=== PATIENT | female | born 1945 | race Caucasian/White ===

== ENCOUNTER 2016-03-03 13:44 | Emergency (ER) | payer MEDICARE, OTHER ==
[2016-03-03 14:13] VITALS: BP 99/55
--- NOTE | 2016-03-03 15:17 | RAD ---
INDICATION: 3 weeks increasing shortness of breath. Central chest pain with inspiration. Cough and fever. COMPARISON: September 13, 2004 TECHNIQUE: Dual energy PA and routine lateral views of the chest were obtained. REPORT: Small bilateral dependent pleural effusions. Minimal prominence of the interstitial markings with thickened peripheral interlobular septa in the lower lung zones. Negative for pneumothorax. Negative for cardiomegaly. Unremarkable central pulmonary vasculature. Mildly tortuous descending thoracic aorta. LEFT C7 cervical rib noted. IMPRESSION: 1. No radiographic evidence for pneumonia. 2. Small bilateral pleural effusions and suggestion of potential mild interstitial edema.
--- NOTE | 2016-03-03 16:27 | UC ---
Ignacio Howe SooYoung, scribed for BrendaMilagros Frazier, DO on 03/03/16 at 1450 . Throat Pain/Nasal Carlito HPI - HPI Summary HPI Summary: A 70 y/o F presents to [facility] with c/o of chills and fever onset this AM. Pt notes having had an ongoing cold for approx. 3 weeks. Yesterday, she noticed UTI sx including frequency, dysuria, cloudy urine, abd discomfort. She spoke to Dr. Gonzalez's office and they gave her macrobid. Dr. Gonzalez is treating her for recurrent UTIs. She took the abx (2x) yesterday, and this AM after waking and peeing, she had chills and fever. MaxT of 100.8. Associated sx: CP, dyspnea( worse with exertion), sore throat, mildly productive cough, generalized weakness. Denies back pain, n/v, hematuria, dizziness, confusion. She called Dr. Gonzalez again this AM, who told her to stop taking the abx, and referred her to [facility]. CP is described as "tightness." Today and now at [facility], pt does not feel any urinary sx. Past SHx: urethra dilation. - History of Current Complaint Chief Complaint: UCGeneralIllness Stated Complaint: BAD COLD-FEVER/CHILLS/WEAK Hx Obtained From: Patient, Family/Sieve Repairer - ?: No Onset/Duration: Lasting Hours - this AM, Still Present Severity: Moderate Pain Intensity: 4 Pain Scale Used: 0-10 Numeric Cough: Sputum Appears - mild, green-dez Associated Signs & Symptoms: Positive: Sinus Discomfort, Nasal Discharge, Fever. Negative: Dysphagia, Drooling, Vomiting, Rash - Allergies/Home Medications Allergies/Adverse Reactions: Allergies Allergy/AdvReac Type Severity Reaction Status Date / Time No Known Allergies Allergy Verified 03/03/16 14:00 Home Medications: Home Medications Ntcqupwgaex-Yarpabjaitd-Tcv C- [Glucosamine Chondroitin] 03/03/16 [History] Ibuprofen TAB* [Advil TAB*] 4 tab PO PRN 03/03/16 [History] Nitrofurantoin Macrocrystals* [Macrodantin*] 1 cap PO 03/03/16 [History Confirmed 03/03/16] Orphenadrine Citrate IV* [Norflex IV*] 10 mg PO PRN 03/03/16 [History] PMH/Surg Hx/FS Hx/Imm Hx Previously Healthy: No Endocrine History Of: Denies: Diabetes, Thyroid Disease Cardiovascular History Of: Denies: Cardiac Disorders, Hypertension, Pacemaker/ICD Respiratory History Of: Denies: COPD, Asthma GI/ History Of: Denies: Ulcer, Renal Disease - Surgical History Surgical History: Yes Surgery Procedure, Year, and Place: TONSILECTOMY. LASIX -EYES-1999. CATARACT - Family History Known Family History: Positive: Unknown - father from suicide when pt was young, poss bipolar, Hypertension - mother Negative: Cardiac Disease, Diabetes - Social History Occupation: Retired Lives: With Family Alcohol Use: Occasionally Alcohol Amount: 1 glass of wine per week Substance Use Type: None Smoking Status (MU): Never Smoked Tobacco - Immunization History Most Recent Influenza Vaccination: 12/12 Review of Systems Constitutional: Fever - maxT - 100.8, Chills Skin: Negative Eyes: Negative ENT: Sore Throat, Nasal Discharge Respiratory: Shortness Of Breath, Cough Cardiovascular: Chest Pain - mild plueritic Gastrointestinal: Negative Genitourinary: Negative Motor: Negative Neurovascular: Negative Musculoskeletal: Negative Neurological: Weakness - generalized Psychological: Negative All Other Systems Reviewed And Are Negative: Yes Physical Exam Triage Information Reviewed: Yes Appearance: Well-Appearing, No Pain Distress, Well-Nourished Vital Signs: Initial Vital Signs Temp 99.2 F 03/03/16 14:03 Pulse 113 03/03/16 14:03 Resp 18 03/03/16 14:03 BP 99/55 03/03/16 14:03 Pulse Ox 93 03/03/16 14:03 Vital Signs Reviewed: Yes Eyes: Positive: Conjunctiva Clear. Negative: Discharge ENT: Positive: Hearing grossly normal, Pharynx normal, TMs normal, Other: - BILATERAL MAXILLARY SINUS TENDERNESS. Negative: Tonsillar swelling, Tonsillar exudate, Trismus, Muffled/hoarse voice Neck exam: Normal Neck: Positive: Supple, Nontender Respiratory: Positive: Chest non-tender, Wheezing - RARE WHEEZES, Expiration - PROLONGED EXPIRATION. Negative: No respiratory distress, Crackles Cardiovascular: Positive: RRR, No Murmur Abdomen Description: Positive: Nontender, Soft. Negative: CVA Tenderness (R), CVA Tenderness (L), Distended, Guarding Bowel Sounds: Positive: Present Musculoskeletal Exam: Normal Musculoskeletal: Positive: Strength Intact, No Edema Neurological: Positive: Alert, Muscle Tone Normal Psychological Exam: Normal Psychological: Positive: Age Appropriate Behavior Skin Exam: Normal, Other - warm, dry, nml color Skin: Positive: Other Diagnostics - Radiology CXR Xray Interpretation: Positive (See Comments) - IMPRESSION: 1. No radiographic evidence of PNA. 2. Small bilat plueral effusions and suggestion of potential mild interstitial edema. Radiology Interpretation Completed By: Radiologist - EKG Cardiac Rate: NL - 97bpm Cardiac Rhythm: Sinus: Normal - no ST changes Throat Pain/Nasal Course/Dx - Differential Dx/Diagnosis Differential Diagnosis/HQI/PQRI: Influenza, Sinusitis, URI, Other - PNA, UTI, SIRS, CHF Provider Diagnoses: DYSPNEA - Physician Notification/Consults Discussed Patient Care With: Dr. Vail Time Discussed With Above Provider: 15:48 Instructed by Provider To: MD Will See In ED Discharge - Discharge Plan Condition: Stable Disposition: HOME Discharge Disposition Comment: [facility], by ambulance Prescriptions: Albuterol HFA INHALER* [Ventolin HFA Inhaler*] 2 puff INH Q4H PRN #1 mdi PRN Reason: Sob/Wheezing Levofloxacin TAB* [Levaquin TAB*] 500 mg PO DAILY #7 tab guaiFENesin ER TAB [Mucinex*] 600 mg PO BID PRN #1 box PRN Reason: Cough Referrals: Wilder Crane MD [Primary Care Provider] - 2 Days (Follow up in 2 days for re- evaluation. This follow up visit is important, we want to know that you are improving. If you can not get in with your PCP, return here for re-evaluation. ) The documentation as recorded by the Ignacio ross SooYoung accurately reflects the service I personally performed and the decisions made by me, Milagros Gutierrez DO.
== END 2016-03-03 16:40 | disposition short-term general hospital (02) ==
LOC: UCEAST 13:44
DX: R06.00 Dyspnea, unspecified (principal); J02.9 Acute pharyngitis, unspecified; R05 Cough; M62.81 Muscle weakness (generalized); Z87.440 Personal history of urinary (tract) infections
CPT/HCPCS: 71020; 93005; 99213; G0463

== ENCOUNTER 2016-03-03 17:04 | Emergency (ER) | payer MEDICARE, OTHER ==
[2016-03-03 17:22] VITALS: BP 114/68
[2016-03-03] MEDS ORDERED: NS 0.9% 1000 ML* 1,000 ML IV ONE (17:52)
[2016-03-03 19:05] LABS: Hematocrit 43 % (35-47); Hemoglobin 14.2 g/dl (12.0-16.0); Mean Corpuscular HGB Conc 33 g/dl (31-36); Mean Corpuscular Hemoglobin 30 pg (27-31); Mean Corpuscular Volume 91 fL (80-97); Mean Platelet Volume 8 um3 (7.4-10.4); Red Blood Count 4.68 10^6/ul (4.0-5.4); Red Cell Distribution Width 12 % (10.5-15)
[2016-03-03 19:06] LABS: Add Diff/Slide Review? Slide Review Added; Comments Flag Yes
[2016-03-03 19:16] LABS: Albumin 3.9 g/dL (3.2-5.2); Calcium 9.1 mg/dL (8.6-10.3); EGFR African American 65.9 (>60); EGFR Non-African American 51.2 (>60); Globulin 2.2 g/dL (2-4); Total Bilirubin 1.3 mg/dL (0.2-1.0); Total Protein 6.1 g/dL (6.4-8.9)
[2016-03-03 19:24] LABS: Potassium 4.6 mmol/L (3.5-5.0)
[2016-03-03 19:56] LABS: RBC Morphology Normal (Normal); Toxic Granulation 2+
[2016-03-03] MEDS ORDERED: Levofloxacin 750 MG IVPREMIX(* 750 MG/150 ML BAG IVPB ONE (20:00)
[2016-03-03] MEDS ORDERED: Acetaminophen TAB* 325 MG PO ONE (20:00)
--- NOTE | 2016-03-03 23:23 | ED ---
Ju Howe Rebecca, scribed for Tavares Vail MD on 03/03/16 at 1723 . Respiratory - HPI Summary HPI Summary: Pt is a 70 y/o F who presents to ED as a transfer from [facility] p/w respiratory complaints. Pt c/o dyspnea on exertion, sore throat, productive cough and generalized weakness intermittently for 3 weeks. Sx aggravated and alleviated by nothing. This morning, she suddenly developed chills and fever. Denies back pain, N/V, hematuria, dizziness and confusion. Yesterday, pt suddenly began experiencing UTI sx, so she called Dr. Gonzalez who prescribed Abx. After 2 doses, chills and fever presented and after discussing with Dr Gonzalez he advised that she cease Abx. Pt reports no urinary sx today. CXR from [facility] shows revealed small bilateral pleural effusions and suggestion of potential mild interstitial edema. - History of Current Complaint Stated Complaint: GENERAL ILLNESS Time Seen by Provider: 03/03/16 17:14 Hx Obtained From: Patient Onset/Duration: Gradual Onset, Lasting Weeks - 3 weeks Timing: Intermittent Episodes Lasting: Current Severity: None Pain Intensity: 0 Character: Cough (Productive), Dyspnea on Exertion Sputum Amount: Small Aggravating Factor(s): Nothing Alleviating Factor(s): Nothing Associated Signs and Symptoms: Fever, SOB - dyspnea on exertion, Chills - Allergy/Home Medications Allergies/Adverse Reactions: Allergies Allergy/AdvReac Type Severity Reaction Status Date / Time No Known Allergies Allergy Verified 03/03/16 14:00 PMH/Surg Hx/FS Hx/Imm Hx Endocrine/Hematology History: Denies: Hx Diabetes, Hx Thyroid Disease Cardiovascular History: Denies: Hx Hypertension, Hx Pacemaker/ICD Respiratory History: Denies: Hx Asthma, Hx Chronic Obstructive Pulmonary Disease (COPD) GI History: Denies: Hx Ulcer History: Denies: Hx Dialysis, Hx Renal Disease Sensory History: Denies: Hx Hearing Aid Psychiatric History: Denies: Hx Panic Disorder - Cancer History Hx Chemotherapy: No Hx Radiation Therapy: No - Surgical History Surgery Procedure, Year, and Place: TONSILECTOMY. LASIX -EYES-2000. CATARACT Infectious Disease History: No Infectious Disease History: Denies: Hx Clostridium Difficile, Hx Hepatitis, Hx Human Immunodeficiency Virus (HIV), Hx of Known/Suspected MRSA, Hx Shingles, Hx Tuberculosis, Hx Known/ Suspected VRE, Hx Known/Suspected VRSA, History Other Infectious Disease, Traveled Outside the [place] in Last 30 Days - Family History Known Family History: Positive: Hypertension - mother Negative: Cardiac Disease, Diabetes - Social History Alcohol Use: Occasionally Alcohol Amount: 1 glass of wine per week Substance Use Type: Reports: None Hx Tobacco Use: No Smoking Status (MU): Never Smoked Tobacco Review of Systems Positive: Fever, Chills, Other - Generalized weakness Positive: Sore Throat Positive: Shortness Of Breath - dyspnea on exertion, Cough - productive Negative: Vomiting, Nausea Positive: no symptoms reported. Negative: hematuria Neurological: Other - Denies dizziness Positive: Other - Denies confusion All Other Systems Reviewed And Are Negative: Yes Physical Exam Vital Signs On Initial Exam: Initial Vitals Temp Pulse Resp BP Pulse Ox 98.2 F 98 16 114/68 94 03/03/16 17:16 03/03/16 17:16 03/03/16 17:16 03/03/16 17:16 03/03/16 17:16 Diagnostics - Vital Signs Vital Signs Temp Pulse Resp BP Pulse Ox 03/03/16 17:16 98.2 F 98 16 114/68 94 - Laboratory Lab Results: Lab Results 03/03/16 03/03/16 03/03/16 Range/Units 16:25 16:25 19:52 WBC 26.0 H (3.5-10.8) 10^3/ul RBC 4.68 (4.0-5.4) 10^6/ul Hgb 14.2 (12.0-16.0) g/dl Hct 43 (35-47) % MCV 91 (80-97) fL MCH 30 (27-31) pg MCHC 33 (31-36) g/dl RDW 12 (10.5-15) % Plt Count 213 (150-450) 10^3/ul MPV 8 (7.4-10.4) um3 Neut % (Auto) 96.9 H (38-83) % Lymph % (Auto) 0.7 L (25-47) % Pratt % (Auto) 1.4 (1-9) % Eos % (Auto) 0.7 (0-6) % Baso % (Auto) 0.3 (0-2) % Absolute Neuts (auto) 25.1 H (1.5-7.7) 10^3/ul Absolute Lymphs (auto) 0.2 L (1.0-4.8) 10^3/ul Absolute Monos (auto) 0.4 (0-0.8) 10^3/ul Absolute Eos (auto) 0.2 (0-0.6) 10^3/ul Absolute Basos (auto) 0.1 (0-0.2) 10^3/ul Absolute Nucleated RBC 0.02 10^3/ul Nucleated RBC % 0.1 Toxic Granulation 2+ Normal RBC Morphology Normal (Normal) Sodium 133 (133-145) mmol/L Potassium 4.6 (3.5-5.0) mmol/L Chloride 105 (101-111) mmol/L Carbon Dioxide 25 (22-32) mmol/L Anion Gap 3 (2-11) mmol/L BUN 18 (6-24) mg/dL Creatinine 1.06 H (0.51-0.95) mg/dL Est GFR ( Amer) 65.9 (>60) Est GFR (Non-Af Amer) 51.2 (>60) BUN/Creatinine Ratio 17.0 (8-20) Glucose 120 H (70-100) mg/dL Lactic Acid 2.5 H* (0.5-2.0) mmol/L Calcium 9.1 (8.6-10.3) mg/dL Total Bilirubin 1.30 H (0.2-1.0) mg/dL AST 22 (13-39) U/L ALT 14 (7-52) U/L Alkaline Phosphatase 60 (34-104) U/L Troponin I 0.00 (<0.04) ng/mL Total Protein 6.1 L (6.4-8.9) g/dL Albumin 3.9 (3.2-5.2) g/dL Globulin 2.2 (2-4) g/dL Albumin/Globulin Ratio 1.8 (1-3) Result Diagrams: 03/03/16 16:25 03/03/16 16:25 Lab Statement: Any lab studies that have been ordered have been reviewed, and results considered in the medical decision making process. - EKG 1710 Cardiac Rate: NL - 90 bpm EKG Rhythm: Sinus Rhythm - normal EKG Interpretation: No ST elevation Re-Evaluation - Re-Evaluation First Eval Re-Evaluation Time: 20:07 Change: Improved Comment: Pt is doing better. Disposition - Course Assessment/Plan: 70 y/o F presents to ED with a CC of having productive cough, fever, chills, nasal congestion for the last couple of weeks. Pt also reports she has been having fevers and chills in the last couple days. Seen by [facility] and sent to ED for further evaluation. CXR shows pleural effusion. Blood work within normal limits besides WBC of 26, creatinine of 1.06 and lactic acid of 2.5. Pt continues to have productive cough therefore I believe pt is developing PNA. Therefor pt was given levaquin, IV fluids and tylenol. Pt reports feeling better, therefore pt will be d/c to home with a follow up with PCP. I discussed all the findings and test results with the patient. Patient was instructed to return to the emergency room immediately if any of the symptoms return or worsens. Patient understand and agree. Plan of care was discussed with the patient and understands and agrees. All questions were answered at patient satisfaction. There were no further complaints or concerns. Lung exam before discharge: CTA B/L. Good air exchange. No wheezing or crackles heard. CVS : S1 and S2 present. No murmurs appreciated. Patient is alert and oriented x 3. Patient is hemodynamically stable. Patient will be discharged home with follow up service secretary in the next 2-3 days - Diagnoses Provider Diagnoses: PNA (pneumonia) Discharge - Discharge Plan Condition: Stable Disposition: HOME Prescriptions: Levofloxacin TAB* [Levaquin TAB*] 750 mg PO DAILY #10 tab Patient Education Materials: Pneumonia (ED) Referrals: Wilder Crane MD [Primary Care Provider] - 3 Days (Follow up with your primary care physician within the next 3 days. ) Additional Instructions: Return to ED for any returning or worsening symptoms. The documentation as recorded by the Ju ross Rebecca accurately reflects the service I personally performed and the decisions made by me, Tavares Vail MD.
== END 2016-03-03 22:27 | disposition home or self-care (01) ==
LOC: ED 17:04
DX: J18.9 Pneumonia, unspecified organism (principal); J02.9 Acute pharyngitis, unspecified; R05 Cough; R50.9 Fever, unspecified; R06.02 Shortness of breath
CPT/HCPCS: 36415; 71020; 80053; 83605; 84484; 85025; 93005; 96360; 99213; 99283; A9270-GY; G0463

== ENCOUNTER 2016-12-06 07:57 | Day surgery (SDC) | payer MEDICARE, OTHER ==
[~2016-12-06 07:57] MED LIST: Acetaminophen TAB* 325 MG PO PRN; Buffered Lidocaine 0.9% SYRIN* 5 ML/SYR SYRINGE INTRADERM ONE
[2016-12-06] MEDS ORDERED: fentaNYL* 50 MCG/ML 2 ML VIAL (100 MCG VIAL) ONE (09:02)
[2016-12-06] MEDS ORDERED: Midazolam* 1 MG/ML 5 ML VIAL (5 MG) ONE (09:02)
[2016-12-06 10:02] VITALS: BP 127/68
[2016-12-06] MEDS ORDERED: Buffered Lidocaine 0.9% SYRIN* 5 ML/SYR SYRINGE ONE (14:12)
[2016-12-06] MEDS ORDERED: Tetracaine 0.5% OPTH.SOL 4 ML* 1 DROP BTL ONE (14:12)
[2016-12-06] MEDS ORDERED: Neomycin/Polymy/Dex OPHTH.OIN* 3.5 GM ONE (14:12)
[2016-12-06] MEDS ORDERED: Phenylephrine 2.5% OPTH.SOL* 2 ML BTL ONE (14:12)
[2016-12-06] MEDS ORDERED: Tropicamide 1% OPTH.SOL* BTL ONE (14:12)
[2016-12-06] MEDS ORDERED: Ketorolac 0.5% OPHTH (NF) 0.5 % 5 ML BTL ONE (14:12)
[2016-12-06] MEDS ORDERED: Cyclopentolate 1% OPTH.SOL* 2 ML BTL ONE (14:12)
[2016-12-06] MEDS ORDERED: Lidocaine 1% MPF* 2 ML VIAL ONE (14:12)
--- NOTE | 2016-12-06 22:12 | OP ---
DATE OF OPERATION: 12/06/16 [facility] DATE OF : 45 SURGEON: Dr. Matt Otoole. WEAVER NARROW FABRICS: None. ANESTHESIA: Topical with intravenous sedation. PRE-OP DIAGNOSIS: Cataract, right eye. POST-OP DIAGNOSIS: Cataract, right eye. OPERATIVE PROCEDURE: Phacoemulsification and cataract extraction with posterior chamber intraocular lens implant, right eye. COMPLICATIONS: None. BLOOD LOSS: None. DESCRIPTION OF PROCEDURE: The patient was brought to the operating room and received a small amount of intra-venous sedation. A drop of Tetracaine was placed in her right eye. She was prepped and draped in the usual sterile fashion for ophthalmic surgery and attention was directed to the right eye where a speculum was placed. A paracentesis was created at the 11 o'clock position and 0.1 cc of 1 percent preservative-free Lidocaine was injected into the anterior chamber followed by DisCoVisc. The eye was digitally stabilized while a 2.75 mm keratome was used to create a triplanar clear corneal incision at the 9 o'clock position. A continuous curvilinear capsulorrhexis was created with a cystotome and Utrata forceps. BSS on a cannula was used to hydrodissect the lens from the capsule. Phacoemulsification was performed in a divide-and- conquer technique to create four fragments which were removed. Residual cortical material was removed with irrigation and aspiration. DisCoVisc was used to inflate the capsular bag and an AU00T0 22.2 diopter lens was folded and inserted into the capsular bag. DisCoVisc was removed using irrigation and aspiration. BSS on a cannula was used to hydrate the corneal stroma and seal the wound. At the end of the case the pupil was round and the lens was centered. The eye was of normal pressure and the wound was water tight. The speculum was removed and topical Maxitrol ointment was placed on the surface of the eye. The eye was closed, patched and shielded and the patient was sent to the recovery room in stable condition with post operative instructions and follow-up appointment given. [id number]/CPS #: [id number] JHONATAN
== END 2016-12-06 10:15 | disposition home or self-care (01) ==
LOC: OREAST 07:57
PROVIDERS: ATTEND Ophthalmology
DX: H25.11 Age-related nuclear cataract, right eye (principal); Z85.3 Personal history of malignant neoplasm of breast; E78.5 Hyperlipidemia, unspecified
CPT/HCPCS: A9270-GY; J2250; J3010; V2632